=== PATIENT | female | born 1955 ===

== ENCOUNTER 2019-04-28 01:05 | Emergency (ER) | payer BC ==
[2019-04-28 03:23] LABS: Basophils % (Auto) 0.5 % (0.0-1.8); Eosinophils # (Auto) 0.1 K/mm3 (0.0-0.4); Eosinophils % (Auto) 0.9 % (0.0-4.3); Hematocrit 41.3 % (30.3-42.9); Hemoglobin 14.3 gm/dl (10.1-14.3); Lymphocytes # (Auto) 1.8 K/mm3 (1.2-5.4); Lymphocytes % (Auto) 22.6 % (13.4-35.0); Mean Corpuscular HGB Conc 35 % (30-34); Mean Corpuscular Volume 92 fl (79-97); Monocytes # (Auto) 0.4 K/mm3 (0.0-0.8); Monocytes % (Auto) 5.2 % (0.0-7.3); Platelet Count 234 K/mm3 (140-440); Red Blood Count 4.48 M/mm3 (3.65-5.03); Red Cell Distribution Width 13.3 % (13.2-15.2)
[2019-04-28 03:47] LABS: Alanine Aminotransferase 31 units/L (7-56); Albumin 4.7 g/dL (3.9-5); BUN/Creatinine Ratio 30; Blood Urea Nitrogen 18 mg/dL (7-17); Calcium 9.7 mg/dL (8.4-10.2); Hemolysis Index 14
--- NOTE | 2019-04-28 07:02 | XRay Report ---
CHEST PA AND LATERAL VIEWS INDICATION: Shortness of breath. COMPARISON: None. FINDINGS: Support devices: None. Heart: Within normal limits. Lungs/Pleura: No acute pulmonary or pleural findings. IMPRESSION: 1. No significant abnormality. Signer Name: Keenan Stuart MD Signed: 04/28/2019 6:58 AM Workstation Name: [id number]
--- NOTE | 2019-04-28 09:03 | Emergency Department Report ---
ED General Adult HPI - General Chief complaint: Dyspnea/Respdistress Stated complaint: SOB Time Seen by Provider: 04/28/19 08:06 Source: patient Mode of arrival: Ambulatory Limitations: No Limitations - History of Present Illness Initial comments: Patient is a 63-year-old female who is presenting after an episode of some mild shortness of breath weakness started last night. Patient was resting and stated that she has some mild shortness of breath. Patient denies any cough chest pain fevers chills sore throat. Patient did get somewhat lightheaded and stated stated that she felt like her heart was racing. Patient became very nervous and decided to come to the emergency department for evaluation. Once the patient arrived to the emergency department she stated that her shortness of breath improved. She still stated that she felt some weakness. Associated Symptoms: denies: confusion, chest pain, cough, diaphoresis - Related Data Allergies Allergy/AdvReac Type Severity Reaction Status Date / Time iodine Allergy Swelling Verified 04/28/19 02:20 lisinopril Allergy Unknown Verified 04/28/19 02:20 Penicillins Allergy Hives Verified 04/28/19 02:18 shellfish derived Allergy Swelling Verified 04/28/19 02:20 ED Review of Systems ROS: Stated complaint: SOB Other details as noted in HPI Comment: All other systems reviewed and negative ED Past Medical Hx - Past Medical History Previous Medical History?: Yes Hx Hypertension: Yes Hx Asthma: Yes Additional medical history: thyroid - Surgical History Past Surgical History?: Yes - Social History Smoking Status: Never Smoker ED Physical Exam - General Limitations: No Limitations General appearance: alert, in no apparent distress - Head Head exam: Present: atraumatic, normocephalic - Eye Eye exam: Present: normal appearance, PERRL, EOMI - ENT ENT exam: Present: mucous membranes moist - Neck Neck exam: Present: normal inspection - Respiratory Respiratory exam: Present: normal lung sounds bilaterally. Absent: respiratory distress, wheezes, rales, rhonchi - Cardiovascular Cardiovascular Exam: Present: regular rate, normal rhythm. Absent: systolic murmur, diastolic murmur, rubs, gallop - GI/Abdominal GI/Abdominal exam: Present: soft, normal bowel sounds. Absent: distended, tenderness, guarding, rebound - Extremities Exam Extremities exam: Present: normal inspection - Back Exam Back exam: Present: normal inspection - Neurological Exam Neurological exam: Present: alert, oriented X3 - Psychiatric Psychiatric exam: Present: normal affect, normal mood - Skin Skin exam: Present: warm, dry, intact, normal color. Absent: rash ED Course Vital Signs 04/28/19 02:20 Temperature 98.2 F Pulse Rate 72 Respiratory 18 Rate Blood Pressure 163/61 O2 Sat by Pulse 99 Oximetry ED Medical Decision Making - Lab Data Result diagrams: 04/28/19 03:11 04/28/19 03:11 Lab Results 04/28/19 04/28/19 04/28/19 Range/Units 02:44 03:11 03:11 WBC 7.9 (4.5-11.0) K/mm3 RBC 4.48 (3.65-5.03) M/mm3 Hgb 14.3 (10.1-14.3) gm/dl Hct 41.3 (30.3-42.9) % MCV 92 (79-97) fl MCH 32 (28-32) pg MCHC 35 H (30-34) % RDW 13.3 (13.2-15.2) % Plt Count 234 (140-440) K/mm3 Lymph % (Auto) 22.6 (13.4-35.0) % Sheridan % (Auto) 5.2 (0.0-7.3) % Eos % (Auto) 0.9 (0.0-4.3) % Baso % (Auto) 0.5 (0.0-1.8) % Lymph # 1.8 (1.2-5.4) K/mm3 Sheridan # 0.4 (0.0-0.8) K/mm3 Eos # 0.1 (0.0-0.4) K/mm3 Baso # 0.0 (0.0-0.1) K/mm3 Seg Neutrophils % 70.8 H (40.0-70.0) % Seg Neutrophils # 5.6 (1.8-7.7) K/mm3 Sodium 141 (137-145) mmol/L Potassium 3.7 (3.6-5.0) mmol/L Chloride 104.7 (98-107) mmol/L Carbon Dioxide 23 (22-30) mmol/L Anion Gap 17 mmol/L BUN 18 H (7-17) mg/dL Creatinine 0.6 L (0.7-1.2) mg/dL Estimated GFR > 60 ml/min BUN/Creatinine Ratio 30 % Glucose 131 H (65-100) mg/dL POC Glucose 120 H (70-105) Calcium 9.7 (8.4-10.2) mg/dL Total Bilirubin 0.90 (0.1-1.2) mg/dL AST 22 (5-40) units/L ALT 31 (7-56) units/L Alkaline Phosphatase 93 (35-129) units/L Total Protein 7.3 (6.3-8.2) g/dL Albumin 4.7 (3.9-5) g/dL Albumin/Globulin Ratio 1.8 % - EKG Data -: EKG Interpreted by Ms EKG shows normal: sinus rhythm, axis, intervals, QRS complexes, ST-T waves Rate: normal - EKG Data Interpretation: normal EKG - Medical Decision Making Patient's laboratory studies are within normal limits. No had mildly patient has his slight elevation of her blood pressure. This may have contributed to her mild shortness of breath and lightheadedness. Patient states that she does have a follow-up appointment with her physician in 2 days. Patient was reluctant to take any medications to normalize her blood pressure. Patient is stable for discharge as she is not having any symptoms of end organ damage. Critical care attestation.: If time is entered above; I have spent that time in minutes in the direct care of this critically ill patient, excluding procedure time. ED Disposition Clinical Impression: Hypertensive urgency, General weakness Disposition: DC-01 TO HOME OR SELFCARE Is pt being admited?: No Does the pt Need Aspirin: No Condition: Stable Instructions: Hypertension (ED) Referrals: RAMON HENRY MD [Primary Care Provider] - 3-5 Days Time of Disposition: 09:03
[2019-04-28 09:17] VITALS: BP 171/66
== END 2019-04-28 09:18 | disposition home or self-care (01) ==
LOC: ED 01:05
DX: I16.0 Hypertensive urgency (principal); I10 Essential (primary) hypertension; J45.909 Unspecified asthma, uncomplicated; Z98.890 Other specified postprocedural states; Z91.041 Radiographic dye allergy status; Z88.8 Allergy status to other drugs, medicaments and biological substances; Z88.0 Allergy status to penicillin; Z91.013 Allergy to seafood
CPT/HCPCS: 36415; 71046; 80053; 82962; 85025; 93005; 93010